=== PATIENT | male | born 1955 | race African-American/Black ===

== ENCOUNTER 2017-10-28 10:54 | Emergency (ER) | payer OTHER ==
[2017-10-28 11:22] VITALS: BP 169/100; PULSE 74; TEMP 99.1; BMI 25.1
[2017-10-28] MEDS ORDERED: SODIUM CHLORIDE 1,000 ML IV STA (12:16)
[2017-10-28 13:32] LABS: BASO % 0.8 % (0-2.0); EOS % 1.9 % (0-4.5); HEMATOCRIT 39.3 % (35.4-49); HEMOGLOBIN 13.6 GM/dL (11.7-16.9); LYMPH % 36.7 % (8-40); MCH 30.7 pg (25.7-33.7); MCHC 34.6 g/dl (32.0-35.9); MEAN CELL VOLUME 88.7 fl (80-96); MEAN PLT VOLUME 7.4 fl (7.5-11.1); MONO % 6.9 % (3.8-10.2); NEUT % 53.7 % (42.8-82.8); PLATELET COUNT 209 K/MM3 (134-434); RBC 4.43 M/mm3 (4.00-5.60); RDW 13.2 % (11.9-15.9); WHITE BLOOD COUNT 4.9 K/mm3 (4.0-10.0)
[2017-10-28 14:02] LABS: ALBUMIN 3.8 g/dl (3.4-5.0); ANION GAP 6 (8-16); BILIRUBIN,TOTAL 0.4 mg/dL (0.2-1.0); BLOOD UREA NITROGEN 21 mg/dL (7-18); CALCIUM 8.8 mg/dL (8.5-10.1); CHLORIDE 108 mmol/L (98-107); CO2 25 mmol/L (21-32); CREATININE 2.2 mg/dL (0.7-1.3); GLUCOSE,RANDOM 107 mg/dL (74-106); MAGNESIUM 2.2 mg/dL (1.8-2.4); SGOT/AST 24 U/L (15-37); SGPT/ALT 37 U/L (12-78); SODIUM 139 mmol/L (136-145); TOT PROT 8.6 g/dl (6.4-8.2)
[2017-10-28 14:03] LABS: ALK PHOS 97 U/L (45-117)
[2017-10-28 14:06] LABS: LIPASE 319 U/L (73-393)
--- NOTE | 2017-10-28 15:06 | PDOC ---
History of Present Illness - General Chief Complaint: Substance Abuse Stated Complaint: WITHDRAWALS Time Seen by Provider: 10/28/17 11:36 History Source: Patient Exam Limitations: No Limitations - History of Present Illness Initial Comments: 10/28/17 13:25 62-year-old male presents the ED for evaluation of heroin withdrawal. Patient states last used a bag of heroin on Saturday today and now is having ago. For nausea vomiting irritability and decreased appetite along with decreased sleep. Patient states that he didn't anything secondary to the above symptoms. Patient states is seeking medication or outpatient program. Patient has not this complaints at this time and states has been using heroin for years intermittently. Denies any other drug use and denies heavy alcohol use. Timing/Duration: getting worse Severity: moderate Modifying Factors: improves with: eating Associated Symptoms: reports: loss of appetite, nausea/vomiting, weakness Past History - Travel Traveled outside of the country in the last 30 days: No - Past Medical History Allergies/Adverse Reactions: Allergies Allergy/AdvReac Type Severity Reaction Status Date / Time No Known Allergies Allergy Verified 10/28/17 11:17 - Suicide/Smoking/Psychosocial Hx Smoking History: Current every day smoker Have you smoked in the past 12 months: Yes Number of Cigarettes Smoked Daily: 4 Information on smoking cessation initiated: No Drug/Substance Use Hx: Yes (HEROIN EVERY OTHER DAY-SNIFFING,CRACK ONCE A WEEK) Patient Lives Alone: No Lives with/in: spouse/SO Review of Systems - Review of Systems Able to Perform ROS?: No Constitutional: Yes: Chills, Loss of Appetite, Weakness HEENTM: No: Symptoms Reported Respiratory: No: Symptoms reported Cardiac (ROS): No: Symptoms Reported ABD/GI: Yes: Diarrhea, Nausea, Poor Appetite, Poor Fluid Intake, Vomiting, Abdominal cramping Musculoskeletal: No: Symptoms Reported Integumentary: No: Symptoms Reported Neurological: No: Symptoms reported *Physical Exam - Vital Signs Last Vital Signs Temp Pulse Resp BP Pulse Ox 99.1 F 74 18 169/100 100 10/28/17 11:17 10/28/17 11:17 10/28/17 11:17 10/28/17 11:17 10/28/17 11:17 - Physical Exam General Appearance: Yes: Nourished, Appropriately Dressed. No: Apparent Distress HEENT: positive: EOMI, OSMEL. negative: Pale Conjunctivae Neck: positive: Supple Respiratory/Chest: positive: Lungs Clear, Normal Breath Sounds. negative: Respiratory Distress, Accessory Muscle Use Cardiovascular: positive: Regular Rhythm, Regular Rate. negative: Murmur Gastrointestinal/Abdominal: positive: Normal Bowel Sounds, Soft. negative: Distended, Guarding, Tenderness Musculoskeletal: negative: CVA Tenderness Extremity: positive: Normal Capillary Refill. negative: Pedal Edema Integumentary: positive: Normal Color, Warm, Moist Neurologic: positive: Motor Strength 5/5. negative: Normal Mood/Affect ED Treatment Course - LABORATORY CBC & Chemistry Diagram: 10/28/17 12:22 10/28/17 12:22 - ADDITIONAL ORDERS Additional order review: Laboratory Results 10/28/17 12:22 Sodium 139 Potassium 4.0 Chloride 108 H Carbon Dioxide 25 Anion Gap 6 L BUN 21 H Creatinine 2.2 H Creat Clearance w eGFR 30.58 Random Glucose 107 H Calcium 8.8 Magnesium 2.2 Total Bilirubin 0.4 AST 24 ALT 37 Alkaline Phosphatase 97 Total Protein 8.6 H Albumin 3.8 Lipase 319 10/28/17 12:22 RBC 4.43 MCV 88.7 MCHC 34.6 RDW 13.2 MPV 7.4 L Neutrophils % 53.7 Lymphocytes % 36.7 Monocytes % 6.9 Eosinophils % 1.9 Basophils % 0.8 - Medications Given in the ED: ED Medications Discontinued Medications Generic Name Dose Route Start Last Admin Trade Name Freq PRN Reason Stop Dose Admin Sodium Chloride 1,000 mls @ 1,000 mls/hr 10/28/17 12:16 10/28/17 14:09 Normal Saline - IV 10/28/17 13:15 1,000 mls/hr ASDIR STA Administration Lorazepam 0.5 mg 10/28/17 12:16 10/28/17 13:54 Ativan Injection - IVPUSH 10/28/17 12:17 0.5 mg ONCE ONE Administration Medical Decision Making - Medical Decision Making 10/28/17 13:31 She requesting detox from heroin. Patient has complaints of nausea vomiting and diarrhea including increased irritability insomnia. Patient on exam had no acute findings. Vital signs stable. Patient ordered for labs, IV fluids, Ativan and will discuss case with [facility] detox. 10/28/17 15:33 Laboratory Tests 10/28/17 10/28/17 12:22 12:22 WBC 4.9 Hgb 13.6 Hct 39.3 Plt Count 209 Neutrophils % 53.7 Sodium 139 Potassium 4.0 Chloride 108 H Carbon Dioxide 25 Anion Gap 6 L BUN 21 H Creatinine 2.2 H Creat Clearance w eGFR 30.58 Random Glucose 107 H Calcium 8.8 Magnesium 2.2 Total Bilirubin 0.4 AST 24 ALT 37 Alkaline Phosphatase 97 Total Protein 8.6 H Lipase 319 Called [facility] does not take [facility] . [facility] does have an outpatient modified medication program which is what patient is requesting at this time. *DC/Admit/Observation/Transfer Diagnosis at time of Disposition: Heroin abuse - Discharge Dispostion Disposition: HOME Condition at time of disposition: Improved - Referrals Referrals: Anson Mayorga MD [Primary Care Provider] - - Patient Instructions Printed Discharge Instructions: Chemical Dependency (Narcotic) (Alternative Therapy) Additional Instructions: Please follow up at night Hospital by calling [phone] and ask for the recovery center. If you cannot control the urge to use heroin, please go to the nearest emergency room as a detox center may be a better option for you at that time. - Post Discharge Activity
== END 2017-10-28 15:48 | disposition home or self-care (01) ==
LOC: JER 10:54
PROC: 3E0337Z Introduction of Electrolytic and Water Balance Substance into Peripheral Vein, Percutaneous Approach (ICD-10-PCS; principal; 2017-10-28)
PROC: 3E033NZ Introduction of Analgesics, Hypnotics, Sedatives into Peripheral Vein, Percutaneous Approach (ICD-10-PCS; 2017-10-28)
DX: F11.23 Opioid dependence with withdrawal (principal)
CPT/HCPCS: 36415; 80053; 83690; 83735; 85025; 99283-25; J7030